=== PATIENT | female | born 2000 | race Caucasian/White ===

== ENCOUNTER 2025-04-07 11:23 | Emergency (ER) | payer MEDICAID, SELFPAY ==
[2025-04-07 11:27] VITALS: BP 139/83; PULSE 126; RESP 20; TEMP 38.8; O2SAT 95
--- NOTE | 2025-04-07 11:37 | ED.GENADUL_ITS ---
Discharge Plan Disposition Patient Disposition: Home Discharge Details Clinical Impression: Community acquired pneumonia, Cyst of left ovary Primary Care Provider: Delphine Lincoln ED Provider: Layton Diamond Home Meds and New Rx's Prescriptions: New doxycycline hyclate 100 mg capsule 100 mg PO BID Qty: 10 0RF amoxicillin 500 mg tablet 500 mg PO BID Qty: 10 0RF Discharge Instructions Instructions: Community-acquired pneumonia in adults Additional Instructions: You are seen in the emergency department for your abdominal pain. You have signs of a small cyst on your left ovary. As we discussed if you develop worsening pain nausea or vomiting or if you have any other concerns please return to the emergency department. You are not . You were also found to have pneumonia which is likely from your recent cough. Please take these antibiotics as directed. Please return to the emergency department if you develop shortness of breath chest pain or if you have any other concerns. Otherwise please follow-up with your primary care provider. For your pain please take medications as follows: 1. Take acetaminophen (Tylenol), 1,000 mg (two 500 mg tabs) every 6 hours [2. Take ibuprofen (Advil), 400 mg every 6 hours.] Discharge Data Discharge Date/Time-TO BE ENTERED AT DEPARTURE: 04/07/25 14:03 HPI General Date/Time Provider Initiated Documentation: 04/07/25 11:37 . HPI Narrative: MDM This is an overall well-appearing initially tachycardic and febrile but subsequently normothermic and not tachycardic 24-year-old female home test left lower quadrant pain history of ureterolithiasis for which patient underwent CT scan. Given initial tachycardia I had ordered broad-spectrum antibiotics. Subsequently upon seeing patient I noted that her heart rate normalized without intervention so I canceled antibiotics and blood cultures. Patient had a CT scan with no signs of ureterolithiasis. She did have a small left-sided corpus luteal cyst but I do not feel that this is causing her symptoms. She had mild splenomegaly noted which I also do not feel is attributed to her symptoms. Her hCG was not consistent with . She did have significant bilateral lung infiltrates. She was not hypoxic but did recently have URI symptoms so certainly possible that she could have community- acquired pneumonia for which I treated her with oral antibiotics. She had a reassuring port score so I do not feel she required hospitalization. She had no sign of ovarian torsion. No diarrhea to suggest diverticulitis. Her urinalysis was not consistent with UTI as it was nitrite negative and negative for leuk esterase.Patient and I discussed that she should return if she developed any shortness of breath or any productive cough or if she passed out. We also discussed that she should return if she developed any worsening pain. 04/10 I called patient at home to inquire as to how she was feeling. She reported that she was feeling improved. She reports that her flank pain was improving. She did say that her left-sided abdominal pain may be moving into her back but that she did not get any fevers and she has not been vomiting. She has a PCP follow- up in 2 days. Advised that if she developed any weakness or difficulty breathing or had any other concerns she should return to the emergency department. She understood with her return indications and was discharged with an empiric trial of expectant outpatient management. HPI This is a female with a history of kidney stones presenting with abdominal pain. She has been experiencing sharp, radiating pain in the mid to lower left side of her abdomen for the past 1.5 to 2 weeks. The pain has intensified and spread over a larger area. She has not taken any medication for the pain this morning. She reports no history of abdominal surgeries. She has a history of kidney stones but states that the current pain is different from her previous experiences. She has not experienced this type of pain before. She experienced vomiting a week ago and has been feeling nauseous. She had a cold two weeks ago, which she is currently recovering from. She reports no rash on her abdomen or burning sensation during urination. However, she mentions difficulty in passing urine today. She reports no recent falls, chest pain, or breathing difficulties. A test conducted yesterday was positive, and she is awaiting confirmation here. Her last menstrual period was on 03/12/2025. She reports no vaginal bleeding. Exam General: Well-appearing in no acute distress speaking in complete sentences. Head: Normocephalic, atraumatic. Eye: Extraocular eye movements intact. No conjunctival injection. No scleral icterus. Ear, nose, mouth, throat: Grossly normal inspection. Normal voice, handling secretions normally. Neck: Trachea midline. Cardiovascular: Well-perfused distal extremities. Regular rate and rhythm Respiratory: Nonlabored respiration. Clear lungs bilaterally Gastrointestinal: Nondistended abdomen. Soft. Minimal left lower quadrant tenderness. No rebound. No guarding. Musculoskeletal: No edema. Moving all 4 extremities spontaneously. Skin: Normal for age and race, grossly normal temperature and turgor. No acute rash. Neurologic: Alert and appropriate, no apparent acute deficits. Psychiatric: Mood and manner are appropriate. Grooming and personal hygiene are appropriate. Related Data Home Medications ?Medication ?Instructions ?Recorded ?Confirmed amoxicillin 500 mg tablet 500 mg PO BID #10 tabs 04/07 doxycycline hyclate 100 mg capsule 100 mg PO BID #10 [facility] 04/07/25 Previous Rx's ?Medication ?Instructions ?Recorded amoxicillin 500 mg tablet 500 mg PO BID #10 tabs 04/07 doxycycline hyclate 100 mg capsule 100 mg PO BID #10 c [facility] 04/07/25 Allergies Allergy/AdvReac Type Severity Reaction Status Date / Time No Known Allergies Allergy Verified 04/07/25 11:30 General Stated Complaint: M[employer] GERMAIN: 2 Course Vital Signs Vital signs: Vital Signs Temperature 38.8 C H 04/07/25 11:27 Pulse 126 H 04/07/25 11:27 Respiratory Rate 20 04/07/25 11:27 Blood Pressure 139/83 04/07/25 11:27 Pulse Oximetry 95 04/07/25 11:27 Temperature 38.8 C H 04/07/25 11:27 Temperature Source Oral 04/07/25 11:27 Pulse 126 H 04/07/25 11:27 Respiratory Rate 20 04/07/25 11:27 Blood Pressure 139/83 04/07/25 11:27 Pulse Oximetry 95 04/07/25 11:27 Oxygen Delivery Method Room Air 04/07/25 11:27 Oxygen Flow Rate 0 04/07/25 11:27 Pain Level 6 04/07/25 11:27 PFSH All Active Problems (Updated 04/07/25 @ 13:40 by Layton Diamond MD) Cyst of left ovary (Acute) Community acquired pneumonia (Acute) Social History Smoking/Tobacco Use Status: Current every day Tobacco Type: e-cigarettes Smoking risk assessment performed?: Yes Alcohol Intake: never Drug use: Daily Substance use type: marijuana
[2025-04-07 11:43] LABS: Glucose Negative (Negative)
[2025-04-07 11:53] LABS: RBC Negative HPF (0-2); WBC 0-2 HPF (0-5)
[2025-04-07 11:54] LABS: C & S Indicated? No
[2025-04-07 12:32] LABS: Abs Immature Grans 0.04 10^3/uL (0.0-0.06); HCT 36.4 % (36.0-46.0); HGB 12.4 g/dL (11.2-15.7); Immature Grans % 0.4 %; MCH 26.8 pg (27.0-33.0); MCHC 34.1 % (32.0-36.0); MCV 79 fL (80-95); MPV 10.2 fL (8.0-11.0); Platelet Count 212 10^3/uL (130-400); RBC 4.63 10^6/uL (3.93-5.22); RDW 13.6 % (11.7-14.6); RDW-SD 38.9 fL; WBC 11.14 10^3/uL (4.4-10.8)
[2025-04-07 12:36] VITALS: BP 133/66; PULSE 114; RESP 17; O2SAT 99
[2025-04-07 13:00] LABS: ALT 24 U/L (14-59); AST 21 U/L (15-37); Albumin 3.4 g/dL (3.4-5.0); Alkaline Phosphatase 106 U/L (46-116); Anion Gap 11.9 mmol/L (3-11); BUN 7 mg/dL (7-18); Bilirubin, Total 0.3 mg/dL (0.2-1.0); CO2 24.1 mmol/L (21.0-32.0); Calcium 9.2 mg/dL (8.5-10.1); Chloride 104 mmol/L (98-107); Estimated GFR 122.25 (mL/min/1.73m2); Glucose 92 mg/dL (74-106); Potassium 3.5 mmol/L (3.5-5.1); Sodium 140 mmol/L (136-145); Total Protein 7.7 g/dL (6.4-8.2)
[2025-04-07 13:01] LABS: HCG Quant, Pregnancy < 1 mIU/mL (1-3)
[2025-04-07] MEDS: Omnipaque 350 MG/ML 100 ML BTL IJ (13:01)
[2025-04-07] MEDS: Normal Saline - Diluent 50 ML VIAL IJ (13:03)
--- NOTE | 2025-04-07 13:05 | DI.CT_ITS ---
Exam(s) CT ABDOMEN PELVIS W EXAM: CT ABDOMEN PELVIS W CLINICAL HISTORY: LLQ pain. TECHNIQUE: Imaging Protocol: Axial computed tomography images with coronal and sagittal reformatted images were created and reviewed CONTRAST MATERIAL: Intravenous: Omnipaque-350 75cc Oral: None COMPARISON: No exams were available for comparison FINDINGS: VISUALIZED LUNG BASES: There is a prominent area of abnormal infiltrate in the right lower lobe. There is also some ground-glass infiltrate in the right middle lobe. Also in the left lower lobe posterior basal segment. There are no pleural effusions. ABDOMEN: There is no ascites. LIVER: There are no focal hepatic lesions evident. No dilated intrahepatic ducts. GALLBLADDER/BILIARY: No obvious gallbladder pathology. CBD is not dilated. PANCREAS: No evidence of pancreatic mass nor dilatation of the pancreatic duct. SPLEEN: The spleen is enlarged with a craniocaudal measurement of 14.5 cm. There are no splenic lesions. The splenic and portal veins are patent.. ADRENALS: There are no significant adrenal masses. KIDNEYS:No cysts evident. No solid renal masses. No calculi nor hydronephrosis.. ABDOMINAL AORTA: Abdominal aorta is not enlarged. LYMPH NODES:There is no retroperitoneal nor paraaortic adenopathy. ABDOMINAL WALL: There is a fat only containing umbilical hernia. No bowel loops therein. GI: There is no evidence of bowel obstruction, free air, nor abscess. PELVIS: GI: No evidence of appendicitis.No evidence of sigmoid diverticulitis. LYMPH NODES: There is no intrapelvic nor inguinal adenopathy. REPRODUCTIVE: Uterus exhibits normal size again stains an IUD in satisfactory position in the endometrial canal. Right adnexa unremarkable. There is a peripherally enhancing corpus luteal cyst in the left ovary which measures 1.5 x 1.3 cm. URINARY BLADDER: No calculi nor obvious masses evident OSSEOUS: No fractures and no significant osseous lesions. IMPRESSION: 1. There is significant infiltrate in both lungs, more prominent in the right lower lobe. There are no pleural effusions. 2. No evidence of appendicitis nor diverticulitis 3. There is an IUD in satisfactory position within the endometrial canal of the anteverted uterus. 4. There is a small peripherally enhancing corpus luteal cyst in left ovary. There are no abnormal extra-axial masses and there is no free fluid in the adnexal regions and pelvis. 5. Mild splenomegaly noted. Craniocaudal length of the spleen is 14.5 cm. RADIATION DOSE DELIVERED: 537.73mGy.cm Total DLP DATA REPOSITORY: All CT scans at this facility are submitted to the National Radiology Data Registry (NRDR) Dose Index Registry (DIR) with the [employer] (ACR). RADIATION OPTIMIZATION: All CT scans at this facility use at least one of these dose optimization techniques: automated exposure control; mA and/or kV adjustment per patient size (includes targeted exams where dose is matched to clinical indication); or iterative reconstruction.
[2025-04-07] MEDS: Normal Saline 1,000 ML 1000 ML IV (13:20)
[2025-04-07 13:33] VITALS: BP 131/85; PULSE 96; RESP 16; O2SAT 98
[2025-04-07] MEDS: Ketorolac 15 MG/ML VIAL IVP (13:47)
[2025-04-07] MEDS: Doxycycline Hyclate 100 MG CAP PO (13:47)
[2025-04-07] MEDS: Acetaminophen 500 MG TAB 1000 MG PO (13:47)
[2025-04-07] MEDS: Amoxicillin 500 MG CAP PO (13:48)
[2025-04-07 13:58] VITALS: BP 116/82; PULSE 65; RESP 18; TEMP 36.8; O2SAT 99
== END 2025-04-07 14:03 | disposition home or self-care (01) ==
PROVIDERS: Emergency Provider Emergency Medicine; PCP Physician Assistant Medical
DX: J18.9 Pneumonia, unspecified organism (principal); R16.1 Splenomegaly, not elsewhere classified; N83.202 Unspecified ovarian cyst, left side; F17.290 Nicotine dependence, other tobacco product, uncomplicated; Z97.5 Presence of (intrauterine) contraceptive device
CPT/HCPCS: 76775; 80053; 81025; 86850; 86900; 86901; 87637; 87798; 96374; 99285; 74177; 81003; 81015; 83605; 84702; 85025; 86618; J1885; J3490

== ENCOUNTER 2025-04-11 10:29 | Emergency (ER) | payer MEDICAID, SELFPAY ==
[2025-04-11 10:48] VITALS: BP 116/75; PULSE 99; RESP 12; TEMP 36.7; O2SAT 96
--- NOTE | 2025-04-11 10:57 | W.ED.GENAD ---
Discharge Plan Disposition Patient Disposition: Home Condition: Good Discharge Details Clinical Impression: Nausea & vomiting, Left flank pain Primary Care Provider: Delphine Lincoln ED Provider: Monique Fu Home Meds and New Rx's Prescriptions: New ondansetron 4 mg tablet,disintegrating 4 mg PO Q8H PRNQty: 7 0RF No Action doxycycline hyclate 100 mg capsule 100 mg PO BID Qty: 10 0RF amoxicillin 500 mg tablet 500 mg PO BID Qty: 10 0RF Discharge Instructions Additional Instructions: Please call your primary care provider first thing in the morning to schedule follow-up appointment. Your workup today was very reassuring. Nausea and vomiting may be due to your antibiotics upsetting your stomach. I recommend that you follow-up gentle diet, avoiding spicy/greasy/fried foods. You may use the Zofran provided for nausea/vomiting as needed. Well-hydrated, drinking plenty of electrolyte rich fluids. Gatorlyte is a great option, as our other [id number] electrolyte mixes May use Tylenol or ibuprofen as needed for back discomfort. Return to emergency care if you develop new severe back pain, uncontrollable vomiting, blood in your vomit or stool, episodes of feeling like you are going to pass out, new fevers despite treatment, difficulty breathing, or if you are very worried you need to be rechecked again immediately. Referrals: Delphine Lincoln [Primary Care Provider, Medicine] [facility] General Date/Time Provider Initiated Documentation: 04/11/25 10:31. [facility] Narrative: Roxy is a 24-year-old female who presents to the emergency department today for evaluation of left flank pain with nausea and vomiting accompanied by feeling of incomplete bladder emptying and. Symptoms began on 04/07/2025, for evaluation of left sided abdominal pain, difficulty urinating, abdominal bloating, fever of 102 degrees, cold sweats, headaches, cough, difficulty taking a deep breath, and loose stools. She was evaluated in emergency department over the weekend, diagnosed with pneumonia (with small left-sided ovarian cyst noted at that time), treated with amoxicillin and doxycycline, has been taking medications as prescribed. Abdominal pain has since migrated to the left flank, is described as jabbing and dull. Today started with nausea and vomiting. Denies newly recorded fevers, sore throat, chest pain, black/tarry stools, change in vaginal discharge/unusual vaginal symptoms. She is currently on her menstrual cycle. PMH significant for: Bipolar disorder, ADHD. Has an IUD in place. Denies history of heart disease, lung disease, diabetes, abdominal surgeries. She has had kidney stone in the past, says that this feels more mild Related Data Home Medications ?Medication ?Instructions ?Recorded ?Confirmed amoxicillin 500 mg tablet 500 mg PO BID #10 tabs 04/07/25 doxycycline hyclate 100 mg capsule 100 mg PO BID #10 caps 04/07/25 ondansetron 4 mg disintegrating 4 mg PO Q8H PRN #7 tabs 04/11/25 tablet Previous Rx's ?Medication ?Instructions ?Recorded amoxicillin 500 mg tablet 500 mg PO BID #10 tabs 04/07/25 doxycycline hyclate 100 mg capsule 100 mg PO BID #10 caps 04/07/25 ondansetron 4 mg disintegrating 4 mg PO Q8H PRN #7 tabs 04/11/25 tablet Allergies Allergy/AdvReac Type Severity Reaction Status Date / Time No Known Allergies Allergy Verified 04/07/25 11:30 General Stated Complaint: Nk/Back Pain GERMAIN: 4 Exam Narrative Exam Narrative: General Appearance: Normal. Vital signs: Within normal limits. HEENT: Moist mucous membranes Respiratory: Bilateral end expiratory wheezes. Easy work of breathing. No cough during exam. Cardiovascular: Normal heart sounds, no murmurs or abnormal sounds. Gastrointestinal: Abdomen soft, nondistended, nontender to palpation. No CVA tenderness. No urinary retention on bladder scan. Skin: Warm and dry, no rash. Psychiatric: Normal. Course Vital Signs Vital signs: Vital Signs Temperature 36.7 C 04/11/25 10:48 Pulse 99 H 04/11/25 10:48 Respiratory Rate 12 04/11/25 10:48 Blood Pressure 116/75 04/11/25 10:48 Pulse Oximetry 96 04/11/25 10:48 Temperature 36.7 C 04/11/25 10:48 Temperature Source Oral 04/11/25 10:48 Pulse 99 H 04/11/25 10:48 Respiratory Rate 12 04/11/25 10:48 Blood Pressure 116/75 04/11/25 10:48 Blood Pressure Position Sitting 04/11/25 10:48 Pulse Oximetry 96 04/11/25 10:48 Oxygen Delivery Method Room Air 04/11/25 10:48 Oxygen Flow Rate 0 04/11/25 10:48 Pain Level 3 04/11/25 10:48 Medical Decision Making Initial Assessment: 24-year-old female with nausea, vomiting, feeling of urinary retention, back pain, pneumonia, and left ovarian cyst. Differential Diagnosis includes but is not limited to: Gastritis, pancreatitis, gastroenteritis, UTI, urinary retention/bladder obstruction, nephrolithiasis, muscle strain, ovarian cyst, dehydration, electrolyte imbalance. No red flags concerning for acute surgical abdomen requiring CT scan at this time, especially as patient recently had 1 performed during previous ED visit on 04/07/2025 with similar abdominal symptoms. Wheezing likely due to pneumonia/reactive airway. She is already being appropriately treated for pneumonia and reporting good improvement of symptoms. I independently interpreted the following tests: ED Course: - Bladder scan performed; no urinary retention - Toradol administered for back pain. - Nebulizer treatment for wheezing - Antinausea medication provided. Roxy reported feeling slightly better after receiving medications. She was able to drink dominique adeline without difficulty. Final Assessment: Bladder scan performed, Toradol administered for back pain, nebulizer treatment given for pneumonia, and antinausea medication provided. Overall workup today reassuring, unclear etiology of flank pain and nausea/vomiting, likely related to gastritis associated with antibiotic use. Recommend use of Zofran prescribed for nausea as needed Clinical Impression: - Left flank pain - Nausea/vomiting Disposition: Discharge home for PCP follow-up if symptoms persist. Reviewed discharge instruction with patient, including importance of completing antibiotics, symptomatic management, and red flags indicate need for return to emergency care. She voices agreement with plan of care. Patient consented to the use of [facility] Data Radiologic Study: Radiologist's impression: Exam(s) US RENAL PELVIC TRANSVAGINAL EXAM: US RENAL PELVIC TRANSVAGINAL CLINICAL HISTORY: L sided flank pain. TECHNIQUE: A renal ultrasound and a transabdominal and transvaginal pelvic ultrasound was performed using standard protocol. COMPARISON: CT CT ABDOMEN PELVIS W from 04/07/2025 FINDINGS: RENAL: Renal size in cm: Right: Left: 10.4 Echogenicity: Normal. Hydronephrosis: No. Cyst or mass: No. Nephrolithiasis: No. Other findings: None. Bladder:The urinary bladder was incompletely distended for the examination. No gross abnormalities identified. Ureteral jets: Right: Not visualized on this examination. Left: Not visualized on this examination. Prevoid vol:11 cc Postvoid vol:2 cc Color: Symmetric and uniform flow to both kidneys. PELVIC: UTERUS: Position: Anteverted. Size: 6.9 long by 3.4 AP by 4.2 transverse cm Endometrium: 0.3 cm. Normal for patient's menstrual status. There is an IUD which is in good position. Myometrium: Unremarkable. Cervix: Unremarkable. OVARIES: Right: 2.1 x 1.7 x 1.2 cm Cyst or mass: No suspicious cystic or solid masses. Left: 2.8 x 1.2 x 1.9 cm Cyst or mass: No suspicious cystic or solid masses. DOPPLER: Color: Symmetric and uniform flow to both ovaries. No hyperemia. CUL-DE-SAC: Free fluid: None. IMPRESSION: 1. Normal sonographic appearance of the kidneys. 2. Normal-appearing uterus with endometrial stripe within normal limits. 3. The IUD is in appropriate position. 4. Unremarkable bilateral ovaries. PFSH All Active Problems (Updated 04/11/25 @ 15:18 by Monique Lema) Left flank pain (Acute) Nausea & vomiting (Acute) Cyst of left ovary (Acute) Community acquired pneumonia (Acute) Social History Smoking/Tobacco Use Status: Current every day Tobacco Type: e-cigarettes Smoking risk assessment performed?: Yes Alcohol Intake: never Drug use: Daily Substance use type: marijuana
--- NOTE | 2025-04-11 11:19 | DI.US_ITS ---
Exam(s) US RENAL PELVIC TRANSVAGINAL EXAM: US RENAL PELVIC TRANSVAGINAL CLINICAL HISTORY: L sided flank pain. TECHNIQUE: A renal ultrasound and a transabdominal and transvaginal pelvic ultrasound was performed using standard protocol. COMPARISON: CT CT ABDOMEN PELVIS W from 04/07/2025 FINDINGS: RENAL: Renal size in cm: Right: Left: 10.4 Echogenicity: Normal. Hydronephrosis: No. Cyst or mass: No. Nephrolithiasis: No. Other findings: None. Bladder:The urinary bladder was incompletely distended for the examination. No gross abnormalities identified. Ureteral jets: Right: Not visualized on this examination. Left: Not visualized on this examination. Prevoid vol:11 cc Postvoid vol:2 cc Color: Symmetric and uniform flow to both kidneys. PELVIC: UTERUS: Position: Anteverted. Size: 6.9 long by 3.4 AP by 4.2 transverse cm Endometrium: 0.3 cm. Normal for patient's menstrual status. There is an IUD which is in good position. Myometrium: Unremarkable. Cervix: Unremarkable. OVARIES: Right: 2.1 x 1.7 x 1.2 cm Cyst or mass: No suspicious cystic or solid masses. Left: 2.8 x 1.2 x 1.9 cm Cyst or mass: No suspicious cystic or solid masses. DOPPLER: Color: Symmetric and uniform flow to both ovaries. No hyperemia. CUL-DE-SAC: Free fluid: None. IMPRESSION: 1. Normal sonographic appearance of the kidneys. 2. Normal-appearing uterus with endometrial stripe within normal limits. 3. The IUD is in appropriate position. 4. Unremarkable bilateral ovaries. DATA REPOSITORY:
[2025-04-11 12:01] LABS: Glucose Negative (Negative)
[2025-04-11 12:09] LABS: C & S Indicated? No; RBC 0-2 HPF (0-2); WBC 0-2 HPF (0-5)
[2025-04-11 14:16] LABS: Abs Immature Grans 0.32 10^3/uL (0.0-0.06); HCT 37.6 % (36.0-46.0); HGB 12.2 g/dL (11.2-15.7); Immature Grans % 2.8 %; MCH 26.2 pg (27.0-33.0); MCHC 32.4 % (32.0-36.0); MCV 81 fL (80-95); MPV 9.6 fL (8.0-11.0); Platelet Count 357 10^3/uL (130-400); RBC 4.66 10^6/uL (3.93-5.22); RDW 13.5 % (11.7-14.6); RDW-SD 39.4 fL; WBC 11.44 10^3/uL (4.4-10.8)
[2025-04-11] MEDS: Ondansetron 4 MG/2 ML VIAL IVP (14:20)
[2025-04-11] MEDS: Ketorolac 15 MG/ML VIAL IVP (14:20)
[2025-04-11 14:26] LABS: Lipase 24 U/L (<78)
[2025-04-11 14:36] LABS: ALT 23 U/L (14-59); AST 24 U/L (15-37); Albumin 3.3 g/dL (3.4-5.0); Alkaline Phosphatase 93 U/L (46-116); Anion Gap 13.3 mmol/L (3-11); BUN 5 mg/dL (7-18); Bilirubin, Total 0.2 mg/dL (0.2-1.0); CO2 24.7 mmol/L (21.0-32.0); Calcium 9.5 mg/dL (8.5-10.1); Chloride 107 mmol/L (98-107); Estimated GFR 126.87 (mL/min/1.73m2); Glucose 92 mg/dL (74-106); Potassium 3.6 mmol/L (3.5-5.1); Sodium 145 mmol/L (136-145); Total Protein 7.8 g/dL (6.4-8.2)
== END 2025-04-11 15:33 | disposition home or self-care (01) ==
PROVIDERS: Emergency Provider Nurse Practitioner Family; PCP Physician Assistant Medical
DX: R11.2 Nausea with vomiting, unspecified (principal); R10.9 Unspecified abdominal pain; F17.290 Nicotine dependence, other tobacco product, uncomplicated
CPT/HCPCS: 76770; 80053; 81025; 83690; 94640; 96374; 96375; 99285; 76830; 76856; 81003; 81015; 85025; 99284; J1885; J2405